=== PATIENT | female | born 1965 | race Caucasian/White ===

== ENCOUNTER → 2017-12-15 07:53 | Outpatient (CLI) | payer OTHER, SELFPAY ==
[2017-12-15 08:48] LABS: Add Manual Diff / Slide Review NO; Basophils Percent Auto 2.1 % (0-2); Eosinophils Percent Auto 3.1 % (2-4); Hematocrit 38.4 % (36-46); Hemoglobin 13.2 g/dL (12.0-16.0); Lymphocytes Percent Auto 18.5 % (25-40); Mean Corpuscular HGB Conc 34.4 % (30-36); Mean Corpuscular Hemoglobin 33.9 PG (26-34); Mean Corpuscular Volume 98.7 fL (80-100); Monocytes Percent Auto 6.8 % (3-14); Neutrophils Absolute Auto 3300 /uL (3000-5900); Neutrophils Percent Auto 69.5 % (50-75); Platelet Count 319 X10^3/uL (150-400); Red Blood Cell Count 3.89 X10^6/uL (4.0-5.2); Red Cell Distribution Width 12.8 % (11.6-14.8); White Blood Cell Count 4.8 X10^3/uL (4.5-11.0)
[2017-12-15 09:03] LABS: Alanine Aminotransferase 28 IU/L (9-52); Albumin 4.3 g/dL (3.5-5.0); Albumin Globulin Ratio 1.4 (1.0-2.8); Alkaline Phosphatase 56 U/L (38-126); Aspartate Aminotransferase 28 IU/L (14-36); BUN Creatinine Ratio 18.6 (6-22); Bilirubin Total 0.7 mg/dL (0.2-1.3); Blood Urea Nitrogen 13 mg/dL (7-17); Calcium 8.9 mg/dL (8.4-10.2); Carbon Dioxide 30 mmol/L (22-32); Chloride 103 mmol/L (98-107); Cholesterol 201 mg/dL (140-199); Estimated Glomerular Filt Rate > 60.0 mL/min (>60); Glucose 84 mg/dL (70-100); HDL Cholesterol 67 mg/dL (40-60); HEMOLYSIS < 15 (0-50); LDL Cholesterol Calculated 102 mg/dL (<100); Sodium 141 mmol/L (137-145); Total Protein 7.3 g/dL (6.3-8.2); Triglycerides 159 mg/dL (35-150)
[2017-12-15 09:42] LABS: TSH w/ Reflex to FT4 2.36 uIU/mL (0.47-4.68)
[2017-12-15 09:57] LABS: HIV 1 and 2 Antibody NEGATIVE (NEGATIVE)
[2017-12-15 10:37] LABS: Urine N gonorrhoeae NOT DETECTED
[2017-12-15 11:03] LABS: Urine Chlamydia NOT DETECTED
[2017-12-19 11:24] LABS: Hepatitis A Antibody IgM NONREACTIVE; Hepatitis Acute Panel Interp 0.01; Hepatitis B Core Antibody IgM NONREACTIVE; Hepatitis B Surface Antigen NONREACTIVE; Hepatitis C Antibody NONREACTIVE
== END ==
PROVIDERS: PCP Family Medicine; Visit Provider Family Medicine
DX: E78.5 Hyperlipidemia, unspecified (principal); Z78.0 Asymptomatic menopausal state; Z11.3 Encounter for screening for infections with a predominantly sexual mode of transmission; Z20.2 Contact with and (suspected) exposure to infections with a predominantly sexual mode of transmission
CPT/HCPCS: 36415; 80053; 80061; 80074; 83001; 83002; 84443; 85025; 86703; 87491; 87591

== ENCOUNTER 2018-01-01 21:24 | Emergency (ER) | payer OTHER, SELFPAY ==
[2018-01-01 21:27] VITALS: BP 148/73; PULSE 80; RESP 16; TEMP 36.8; O2SAT 97; BMI 23.3
--- NOTE | 2018-01-01 22:23 | ED.FALL ---
HPI - Fall General Chief Complaint: Fall Stated Complaint: FALL HIT HEAD RIGHT SIDE Time Seen by Provider: 01/01/18 22:17 Source: patient Mode of arrival: ambulatory Limitations: no limitations History of Present Illness HPI Narrative: The patient was walking her dog about 9:00 p.m. tonight. She stumbled while walking on a sidewalk, falling forward and hitting her head on pavement. She injured her right brow, there has been a little bleeding. She has no visual changes. She has no bleeding from the nose, mouth or ears. She felt dazed after the fall, and took a bit of time to collect herself. There was no LOC. She has no neck pain. She has no extremity weakness. There are no other injuries other than her right forehead. Related Data Previous Rx's Medication Instructions Recorded acyclovir [Zovirax] 1 sulema TP QDAY #5 gm 05/24/17 levothyroxine 25 mcg PO QAM #90 tab 12/20/17 Allergies Allergy/AdvReac Type Severity Reaction Status Date / Time venom-honey bee Allergy Mild Verified 12/01/17 09:36 [bee venom (honey bee)] Review of Systems Review of Systems All systems reviewed & are unremarkable except as noted in HPI and below Constitutional Denies chills, Denies fever(s), Denies lethargy and Denies weakness Eyes Denies change in vision, Denies eye discharge, Denies irritation and Denies loss of vision ENT Ears, Nose, Mouth, and Throat: Denies change in voice, Denies vertigo, Denies dizziness, Denies mouth lesions, Denies neck pain and Denies throat swelling Cardiovascular Denies syncope Musculoskeletal Denies neck pain and Reports other ( No injuries) Integumentary/Breasts Denies rash and Reports wounds ( forehead abrasion) Neurologic Denies confusion, Denies vertigo, Denies dizziness, Denies syncope, Denies loss of vision and Denies weakness Psychiatric Denies confusion Allergic/Immunologic Denies throat swelling Exam Initial Vital Signs Initial Vital Signs: Vital Signs Temperature 98.3 F 01/01/18 21:27 Pulse Rate 80 01/01/18 21:27 Respiratory Rate 16 01/01/18 21:27 Blood Pressure 148/73 H 01/01/18 21:27 Pulse Oximetry 97 01/01/18 21:27 Const General: cooperative, comfortable and well developed Nutritional Appearance: well nourished Orientation: alert, awake, oriented x3 and not confused [facility] Head: normocephalic and other ( abrasion to the right brow.) Ears: external ears normal and TM's normal bilaterally Nose: external nose normal and No nasal discharge Face and sinus: sinuses nontender, face symmetric, no sinus tenderness and No dry mucous membranes Mouth: oral mucosae normal and moist mucous membranes Teeth and gingiva: dentition normal Throat: tonsils normal and uvula midline Eyes General: appearance normal, both eyes and all related structures Eyelids: eyelids normal Conjunctivae: conjunctivae normal Sclera: sclerae normal Pupils: PERRL EOM: EOM intact bilaterally Other: No evidence of hyphema. Neck Neck: normal visual inspection, full ROM and No tender Neuro General: alert, awake, oriented x3, no meningeal signs and other ( Normal Romberg) Cranial Nerves: CN's II-XI intact bilaterally Motor: muscle tone normal throughout [facility] Medical History Chlamydia (Chronic ~2001) Foot pain (Chronic ~1996) Hepatitis (Chronic) Herpes (Chronic) Vision disorder (Chronic) Abnormal Pap smear of cervix (Resolved) Acne (Resolved) Asthma (Resolved) Chicken pox (Resolved ~1967) Measles (Resolved) Mumps (Resolved) Plantar warts (Resolved) Rubella (Resolved) Surgical History Anesthesia (Resolved) Surgical procedure planned (Resolved ~1998) Status post delivery (05/28/98) Family History Father Age: 73 Heart disease Hyperlipidemia Hypertension Colon polyps Son Asthma Social History Smoking Status: Never smoker Course Hospital Course: injuries are fortunate limited to an abrasion to the right brow. The wound was cleansed and dressed prior to discharge. Vital Signs - 8 hr 01/01/18 21:27 Temperature 98.3 F Pulse Rate 80 Respiratory Rate 16 Blood Pressure 148/73 H Pulse Oximetry 97 Discharge Plan Departure Patient Disposition: Home, Self-Care Clinical Impression: Abrasion of forehead Discharge Date/Time: 01/01/18 22:30 Instructions: DI for Abrasion Activity Restrictions/Additional Instructions: Take Tylenol or Advil as needed for pain. Apply ice packs to the forehead for the next 1-2 days may also help with discomfort. Return here for visual changes, Vomiting, dizziness or weakness. Prescriptions: No Action acyclovir [Zovirax] 5 % cream 1 sulema TP QDAY Qty: 5 RF: 0 levothyroxine 25 mcg tablet 25 mcg PO QAM Qty: 90 RF: 3
== END 2018-01-01 22:30 | disposition home or self-care (01) ==
PROVIDERS: Emergency Provider Emergency Medicine; Family Provider Family Medicine; PCP Family Medicine
DX: S00.81XA Abrasion of other part of head, initial encounter (principal); W19.XXXA Unspecified fall, initial encounter
CPT/HCPCS: 99282

== ENCOUNTER 2018-01-04 14:23 | Emergency (ER) | payer OTHER, SELFPAY ==
[2018-01-04 14:26] VITALS: BP 133/80; PULSE 83; RESP 15; TEMP 36.9; O2SAT 99
--- NOTE | 2018-01-04 15:05 | PC.NURSE ---
pt states she is feeling dizzy after her fall on Monday .
--- NOTE | 2018-01-04 15:21 | ED.HEATRA ---
HPI - Head Injury General Chief complaint: Head Injury Stated complaint: DIZZY, POSSIBLE CONCUSSION Time Seen by Provider: 01/04/18 15:21 Source: patient Mode of arrival: ambulatory Limitations: no limitations History of Present Illness HPI Narrative: Patient states that 3 days ago, she was seen in the emergency department after tripping over her dog and falling and hitting her head on the ground. She states she was diagnosed with an abrasion at that time, but has come back because she was told by her primary care physician that she has a concussion. Patient states she had no idea that she had a concussion and she has been feeling dizzy and having a mild headache. She is wondering if this is normal. Patient denies ataxia or excessive drowsiness. She states that her headache has not been worsening and in fact has been improving. No visual changes. No other complaints or injuries. MD Complaint: head injury Onset (ago): day(s) (Three) Mechanism of Injury: fall Place: outdoors Loss of Consciousness: no Location of injury: frontal Severity: moderate Severity scale (1-10): 2 Quality: dull Radiation: none Other Injuries: none Context: other (Patient is not on anticoagulants.) Associated symptoms: other (Patient has had no confusion or amnesia. No nausea or vomiting. No weakness,numbness or tingling.) Related Data Previous Rx's Medication Instructions Recorded acyclovir [Zovirax] 1 sulema TP QDAY #5 gm 05/24/17 levothyroxine 25 mcg tablet 25 mcg PO QAM #90 tab 01/02/18 Allergies Allergy/AdvReac Type Severity Reaction Status Date / Time venom-honey bee Allergy Mild Verified 01/04/18 14:26 [bee venom (honey bee)] Review of Systems Review of Systems All systems reviewed & are unremarkable except as noted in HPI and below Constitutional Denies chills, Denies fever(s), Denies lethargy and Denies weakness Eyes Denies change in vision, Denies eye discharge, Denies irritation and Denies loss of vision ENT Ears, Nose, Mouth, and Throat: Denies change in voice, Reports dizziness, Denies neck pain and Denies sore throat Cardiovascular Denies chest pain, Denies irregular heart rhythm, Denies lightheadedness, Denies palpitations, Denies dyspnea, Denies dyspnea on exertion and Denies orthopnea Respiratory Denies cough, Denies dyspnea, Denies dyspnea on exertion and Denies wheezing Gastrointestinal Gastrointestinal: Denies abdominal pain, Denies change in bowel habits, Denies diarrhea, Denies nausea and Denies vomiting Genitourinary Denies hematuria, Denies flank pain, Denies urinary incontinence and Denies urinary urgency Musculoskeletal Denies neck pain Integumentary/Breasts Denies pruritus, Denies erythema, Denies rash and Denies wounds Neurologic Denies confusion, Reports dizziness, Denies loss of vision and Denies weakness Psychiatric Denies anxiety, Denies confusion, Denies depression, Denies homicidal ideation and Denies suicidal ideation Endocrine Denies palpitations Hematologic/Lymphatic Denies easy bruising Allergic/Immunologic Denies wheezing [facility] Social History marital status: Smoking Status: Never smoker alcohol intake: never substance use type: does not use Exam Initial Vital Signs Initial Vital Signs: Vital Signs Temperature 98.5 F 01/04/18 14:26 Pulse Rate 83 01/04/18 14:26 Respiratory Rate 15 01/04/18 14:26 Blood Pressure 133/80 H 01/04/18 14:26 Pulse Oximetry 99 01/04/18 14:26 Const General: cooperative and well developed Nutritional Appearance: well nourished Orientation: alert, awake, oriented x3 and not confused [facility] Head: normocephalic, atraumatic and periorbital ecchymosis (Patient has a subacute appearing contusion over her right lateral supraorbital area. Extraocular muscles are intact.) Ears: external ears normal and TM's normal bilaterally Nose: external nose normal and No nasal discharge Face and sinus: sinuses nontender, face symmetric, no sinus tenderness and No dry mucous membranes Mouth: oral mucosae normal and moist mucous membranes Teeth and gingiva: dentition normal Throat: tonsils normal and uvula midline Eyes General: appearance normal, both eyes and all related structures Eyelids: eyelids normal Conjunctivae: conjunctivae normal Sclera: sclerae normal Pupils: PERRL EOM: EOM intact bilaterally Neck Neck: normal visual inspection, trachea midline, No lymphadenopathy, No midline deformity and No JVD Lymphatic: No lymphedema Chest Chest: normal inspection of the chest Resp Effort & Inspection: normal respiratory effort, able to speak in complete sentences, no respiratory distress and no use of accessory muscles Auscultation: clear to auscultation bilaterally, no rales, no rhonchi and no wheezes Cardio Rate: regular rate Rhythm: regular rhythm Heart Sounds: no click, no gallops, no murmurs and no rubs Pulses: normal peripheral pulses GI Inspection: non-distended Palpation: soft, no hepatosplenomegaly, No guarding, No pulsatile mass and No tender Auscultation: normal bowel sounds Back/Spine/Pelvis Back: No CVA tenderness Cervical Spine: cervical ROM normal and No pain with cervical ROM Thoracic/Lumbar Spine: thoracic and lumbar spine normal to inspection Skin General: no rashes or lesions noted, No jaundice and No petechiae Neuro General: alert, oriented x3, gait normal and no focal motor deficits Speech: speech normal Extrem General: full ROM, no clubbing, cyanosis or edema, no pedal edema and no calf tenderness Psych Appearance: well kempt Mental Status: mental status grossly normal Attitude: cooperative Thought Content: normal and suicidality Judgment: judgment good Course Hospital Course: Patient was well appearing in the emergency department. I did not feel that her symptoms indicated an undiagnosed intracranial hemorrhage. I did discuss at length with the patient the symptoms of concussion, as well as the time frame during which they should be expected. Patient expressed understanding. I did not feel any diagnostic imaging was indicated in the emergency department at this time. Patient is deemed stable for discharge home. Vital Signs - 8 hr 01/04/18 14:26 01/04/18 15:41 Temperature 98.5 F Pulse Rate 83 88 Respiratory Rate 15 12 Blood Pressure 133/80 H Blood Pressure [Right Arm] 134/88 H Pulse Oximetry 99 99 MDM - Head Injury Differential Diagnosis Differential diagnosis: Likely concussion without loss of consciousness, closed head injury and postconcussion syndrome Medical Records Attestation: I reviewed the patient's medical records. Discharge Plan Departure Patient Disposition: Home, Self-Care Clinical Impression: Closed head injury, Concussion without loss of consciousness Discharge Date/Time: 01/04/18 15:50 Interventions: ED Discharge Assessment Last Done: 01/04/18 15:50 Instructions: DI for Concussion Prescriptions: No Action acyclovir [Zovirax] 5 % cream 1 sulema TP QDAY Qty: 5 RF: 0 levothyroxine 25 mcg tablet 25 mcg PO QAM Qty: 90 RF: 3 Referrals: Vipul Akhtar MD [Primary Care Provider] - (Please follow up, as needed.)
[2018-01-04 15:41] VITALS: BP 134/88; PULSE 88; RESP 12; O2SAT 99
== END 2018-01-04 15:50 | disposition home or self-care (01) ==
PROVIDERS: Emergency Provider Emergency Medicine; Family Provider Family Medicine; PCP Family Medicine
DX: S09.90XA Unspecified injury of head, initial encounter (principal); R42 Dizziness and giddiness; W19.XXXA Unspecified fall, initial encounter
CPT/HCPCS: 99282

== ENCOUNTER → 2018-06-09 08:56 | Outpatient (CLI) | payer OTHER, SELFPAY ==
--- NOTE | 2018-06-09 09:00 | DI.RAD.S_ITS ---
PROCEDURE: XR FOOT LT MIN 3V INDICATIONS: Left foot pain TECHNIQUE: 3 views of the foot were acquired. COMPARISON: None. FINDINGS: Bones: No fractures or dislocations. No suspicious bony lesions. Soft tissues: No tibiotalar joint effusion. Achilles tendon appears normal. IMPRESSION: No fracture. No osseous lesion. If symptoms and/or clinical suspicion for pathology persists, further assessment with repeat radiographs (7-10 days) or advanced imaging (e.g. CT, MRI or bone scan) may be helpful. Dictated by: Shannon Cagle MD, PhD on 06/09/2018 at 9:27 Approved by: Shannon Cagle MD, PhD on 06/09/2018 at 9:28
== END ==
PROVIDERS: Family Provider Family Medicine; PCP Family Medicine; Visit Provider Physician Assistant
DX: M79.672 Pain in left foot (principal)
CPT/HCPCS: 73630

== ENCOUNTER → 2019-11-12 07:37 | Outpatient (CLI) | payer OTHER, SELFPAY ==
[2019-11-12 08:22] LABS: Add Manual Diff / Slide Review NO; Basophils Absolute Auto 100 /uL (0-100); Basophils Percent Auto 3.2 % (0-2); Eosinophils Absolute Auto 100 /uL (0-450); Eosinophils Percent Auto 2.3 % (2-4); Hematocrit 38.7 % (36-46); Hemoglobin 13.7 g/dL (12.0-16.0); Lymphocytes Absolute Auto 1300 /uL (1100-4500); Lymphocytes Percent Auto 34.3 % (25-40); Mean Corpuscular HGB Conc 35.4 % (30-36); Mean Corpuscular Hemoglobin 34.7 PG (26-34); Mean Corpuscular Volume 97.8 fL (80-100); Monocytes Absolute Auto 400 /uL (0-900); Neutrophils Absolute Auto 1900 /uL (1500-7000); Neutrophils Percent Auto 49.2 % (50-75); Platelet Count 288 X10^3/uL (150-400); Red Blood Cell Count 3.96 X10^6/uL (4.0-5.2); Red Cell Distribution Width 12.9 % (11.6-14.8); White Blood Cell Count 3.9 X10^3/uL (4.5-11.0)
[2019-11-12 08:55] LABS: Alanine Aminotransferase 21 IU/L (<35); Albumin 4.2 g/dL (3.5-5.0); Albumin Globulin Ratio 1.4 (1.0-2.8); Alkaline Phosphatase 71 U/L (38-126); Aspartate Aminotransferase 35 IU/L (14-36); BUN Creatinine Ratio 19.7 (6-22); Bilirubin Total 0.9 mg/dL (0.2-1.3); Blood Urea Nitrogen 13 mg/dL (7-17); Calcium 9.1 mg/dL (8.4-10.2); Carbon Dioxide 28 mmol/L (22-32); Chloride 103 mmol/L (98-107); Cholesterol 224 mg/dL (140-199); Estimated Glomerular Filt Rate > 60.0 mL/min (>60); Globulin 3.1 g/dL (1.7-4.1); Glucose 96 mg/dL (70-100); HDL Cholesterol 50 mg/dL (40-60); HEMOLYSIS < 15 (0-50); LDL Cholesterol Calculated 152 mg/dL (<100); Potassium 4.4 mmol/L (3.4-5.1); Sodium 138 mmol/L (137-145); Total Protein 7.3 g/dL (6.3-8.2); Triglycerides 108 mg/dL (35-150)
[2019-11-12 09:24] LABS: TSH w/ Reflex to FT4 4.14 uIU/mL (0.47-4.68)
== END ==
PROVIDERS: Family Provider Family Medicine; PCP Family Medicine; Referring Provider Family Medicine; Visit Provider Family Medicine
DX: E06.3 Autoimmune thyroiditis (principal); E78.5 Hyperlipidemia, unspecified; E66.9 Obesity, unspecified; Z68.30 Body mass index [BMI] 30.0-30.9, adult
CPT/HCPCS: 36415; 80053; 80061; 84443; 85025

== ENCOUNTER → 2020-01-21 15:52 | Outpatient (CLI) | payer OTHER, SELFPAY ==
--- NOTE | 2020-01-21 | DI.MG.S_ITS ---
BILATERAL DIGITAL SCREENING MAMMOGRAM 3D/2D WITH CAD: 01/21/2020 CLINICAL: Routine screening. Comparison is made to exams dated: 01/16/2017 mammogram, 07/09/2014 mammogram - [facility], and 07/02/2009 mammogram - [facility]. The tissue of both breasts is heterogeneously dense. This may lower the sensitivity of mammography. Current study was also evaluated with a Computer Aided Detection (CAD) system. There are new linear fine calcifications in the left breast anterior depth inferior region seen on the mediolateral oblique view only. No other significant masses, calcifications, or other findings are seen in either breast. IMPRESSION: INCOMPLETE: NEEDS ADDITIONAL IMAGING EVALUATION The new linear fine calcifications in the left breast resemble vascular calcifications but are indeterminate. Mediolateral and spot magnification views are recommended for further characterization. This exam was interpreted at Station ID: [id number]. NOTE: For mammograms, a report in lay terms will be sent to the patient. Approximately 15% of breast malignancies will not be visualized mammographically. In the management of a palpable breast mass, a negative mammogram must not discourage biopsy of a clinically suspicious lesion. Electronically Signed By: Franky Santos M.D. aty/:01/21/2020 16:36:09 letter sent: Additional Imaging Needed ACR BI-RADS Category 0: Incomplete 3340F
== END ==
PROVIDERS: Family Provider Family Medicine; PCP Family Medicine; Referring Provider Family Medicine; Visit Provider Family Medicine
DX: Z12.31 Encounter for screening mammogram for malignant neoplasm of breast (principal)
CPT/HCPCS: 77063; 77067

== ENCOUNTER → 2023-08-30 14:37 | Outpatient (CLI) | payer OTHER, SELFPAY ==
--- NOTE | 2023-08-30 14:38 | DI.MG.S_ITS ---
BILATERAL DIGITAL SCREENING MAMMOGRAM 3D/2D WITH CAD: 08/30/2023 CLINICAL: Routine screening. Comparison is made to exams dated: 01/16/2017 mammogram, 01/21/2020 mammogram, and 07/09/2014 mammogram - [facility]. Both breasts are heterogeneously dense, which may obscure small masses (category c / 51-75% glandular tissue). Current study was also evaluated with a Computer Aided Detection (CAD) system. No significant masses, calcifications, or other findings are seen in either breast. There has been no significant interval change. IMPRESSION: NEGATIVE There is no mammographic evidence of malignancy. A 1 year screening mammogram is recommended. Based on the Tyrer Cuzick model (a risk assessment model) the patient's lifetime risk is 13.6% and her 10 year risk is 5.6%. According to the ACR, ACS, and NCCN guidelines, an annual breast MRI exam along with mammogram is recommended if the patient's lifetime risk is 20% or greater. This exam was interpreted at Station ID: [id number]. NOTE: For mammograms, a report in lay terms will be sent to the patient. Approximately 15% of breast malignancies will not be visualized mammographically. In the management of a palpable breast mass, a negative mammogram must not discourage biopsy of a clinically suspicious lesion. Electronically Signed By: Karen gallego/patty:09/01/2023 15:28:11 letter sent: Normal Exam ACR BI-RADS Category 1: Negative [id number]
== END ==
PROVIDERS: Family Provider Family Medicine; PCP Family Medicine; Referring Provider Family Medicine; Visit Provider Family Medicine
DX: Z12.31 Encounter for screening mammogram for malignant neoplasm of breast (principal); R92.333 Mammographic heterogeneous density, bilateral breasts
CPT/HCPCS: 77063; 77067

== ENCOUNTER 2024-01-02 09:11 | Day surgery (SDC) | payer OTHER, SELFPAY ==
[2024-01-02 09:37] VITALS: BP 134/78; PULSE 68; RESP 17; TEMP 37.1; O2SAT 99
[2024-01-02] MEDS: LACTATED RINGERS 1,000 ML 42 ML IV (09:42)
--- NOTE | 2024-01-02 10:06 | P.HP_ITS ---
History of Present Illness History of Present Illness Date Patient Seen: 01/02/24 Time Patient Seen: 10:06 Chief complaint: SDC Narrative: 58-year-old woman here for screening colonoscopy. Last colonoscopy 10 years ago. Grandmother and grandfather had colon cancer but not within first-degree relatives. No abdominal concerns today. [facility] Medical History Vision disorder Plantar warts Acne Asthma Foot pain (~1996) Chlamydia (~2001) Rubella Mumps Measles Hepatitis Chicken pox (~1967) Herpes Abnormal Pap smear of cervix Surgical History Anesthesia Surgical procedure planned (~1998) Status post delivery (05/28/98) Family History Father Age: 79 Heart disease Hyperlipidemia Hypertension Colon polyps Son Asthma Social History marital status: Smoking Status: Never smoker alcohol intake: never substance use type: does not use Meds Home Medications and Allergies Home Medications Medication Instructions Recorded Confirmed Type fluticasone propionate 50 2 spray intranasal DAILY 06/09/18 01/02/24 History mcg/actuation nasal spray,suspension multivitamin 1 tab PO DAILY 05/27/20 01/02/24 History fexofenadine 180 mg tablet 180 mg PO PRN PRN Allergic Symptoms 11/22/22 01/02/24 History (Negra Allergy) Allergies Allergy/AdvReac Type Severity Reaction Status Date / Time venom-honey bee Allergy Mild Verified 11/14/23 18:41 [bee venom (honey bee)] morphine Allergy ITCHING Verified 01/02/24 09:29 Exam Vital Signs (past 8 hours): - 01/02/24 09:37 Temperature 98.7 F Pulse Rate 68 Respiratory Rate 17 Blood Pressure 134/78 Pulse Oximetry 99 Oxygen Delivery Method Room Air Oxygen Delivery Method Room Air Narrative Exam Narrative: General adult woman alert oriented no acute distress Chest nonlabored respiration Extremities warm well perfused Assessment & Plan Assessment & Plan narrative: The patient requires colorectal screening and colonoscopy is recommended. Technical details were discussed. Risks, benefits, alternatives explained. Risks including but not limited to myocardial infarction, aspiration, bleeding, pain, missed lesion, incomplete examination, need for further radiographic studies, intestinal injury, and need for major abdominal surgery were discussed. All questions were answered to their satisfaction, and they are in agreement with this plan. Time-Based Coding :: [TOTAL MINUTES] spent with patient and on the chart (including review of chart, obtaining history, exam, reviewing outside data, placing orders, documenting exam and treatment plan, and counseling patient) on [DATE].
[2024-01-02 10:33] VITALS: BP 119/76; PULSE 97; RESP 20; TEMP 36.3; O2SAT 97
--- NOTE | 2024-01-02 10:37 | P.OP.COLON_ITS ---
Operative Date/Time/Diagnoses Date of procedure: 01/02/24 Time of procedure: 10:38 Pre-op diagnosis: Colorectal screening Procedure & Clinicians Study performed: Screening colonoscopy Same procedure as scheduled: Yes Indications: Colorectal screening Surgeon: Nicolás De Jesus Procedure Notes Procedure in detail: The history and physical was performed/updated and the patient is ASA class is 2. The procedure was discussed in detail with the patient. Potential risks co mplications including infection, bleeding, missed diagnosis, perforation, need for surgery, and were explained. Their questions were answered and informed consent was obtained. Patient was brought to the procedure room and placed standard monitoring equipment. The patient's vital signs were monitored continuously throughout the entire procedure. Prior to starting time-out was performed. The patient was placed in the left lateral recumbent position. Procedural sedation was administered by anesthesia. Examination began with a thorough inspection of the perianal area there was no evidence of fissures, fistulae, external hemorrhoids or cutaneous malignancy. The colonoscopy scope was then placed into the anal canal and was advanced to the cecum, which was identified by the ileocecal valve, the appendiceal orifice and the confluence of the taenia. The scope was then slowly withdrawn examining colon thoroughly in all directions, irrigating it of any residual stool. The scope was retroflexed within the rectum The patient tolerated the procedure well. They will be discharged once criteria are met. The prep was of good/excellent quality. The withdrawl time was 7 minutes. FINDINGS * Unremarkable colonoscopy. Normal healthy colonic mucosa without mass or polyps. Specimen(s): none sent Impression: Normal colonoscopy Post-procedure Recommendations: Colonoscopy in 10 years Disposition: same day surgery
[2024-01-02 10:38] VITALS: BP 125/71; PULSE 66; RESP 21; O2SAT 97
[2024-01-02 10:44] VITALS: BP 146/92; PULSE 68; RESP 19; O2SAT 98
[2024-01-02 10:45] VITALS: BP 140/86; PULSE 73; RESP 14; TEMP 36.5; O2SAT 98
[2024-01-02 11:11] VITALS: BP 142/84; PULSE 54; RESP 16; TEMP 36.7; O2SAT 99
== END 2024-01-02 11:19 | disposition home or self-care (01) ==
PROVIDERS: Family Provider Family Medicine; PCP Family Medicine; Referring Provider Surgery; Visit Provider Surgery
PROC: 0DJD8ZZ Inspection of Lower Intestinal Tract, Via Natural or Artificial Opening Endoscopic (ICD-10-PCS; CPT 45378; principal; 2024-01-02 10:15)
DX: Z12.11 Encounter for screening for malignant neoplasm of colon (principal)
CPT/HCPCS: 45378; J2704

== ENCOUNTER → 2024-08-08 18:08 | Outpatient (CLI) | payer OTHER, SELFPAY | PROVIDERS: Family Provider Family Medicine; PCP Family Medicine; Visit Provider Student in an Organized Health Care Education/Training Program | DX: R10.9 Unspecified abdominal pain (principal) | CPT/HCPCS: 87086 ==

== ENCOUNTER 2024-08-08 18:40 | Observation (INO) | payer OTHER, SELFPAY ==
[2024-08-08 18:50] VITALS: BP 125/68; PULSE 84; RESP 15; TEMP 37.1; O2SAT 100; BMI 27.4
[2024-08-08 19:16] LABS: Add Manual Diff / Slide Review NO; Basophils Absolute Auto 0 /uL (0-100); Basophils Percent Auto 0.4 % (0-2); Eosinophils Absolute Auto 100 /uL (0-450); Eosinophils Percent Auto 0.7 % (2-4); Hematocrit 37.9 % (36-46); Hemoglobin 12.8 g/dL (12.0-16.0); Lymphocytes Absolute Auto 1300 /uL (1100-4500); Lymphocytes Percent Auto 12.5 % (25-40); Mean Corpuscular HGB Conc 33.8 % (30-36); Mean Corpuscular Hemoglobin 33.5 PG (26-34); Mean Corpuscular Volume 99.1 fL (80-100); Monocytes Absolute Auto 800 /uL (0-900); Monocytes Percent Auto 8.1 % (3-14); Neutrophils Absolute Auto 8200 /uL (1500-7000); Neutrophils Percent Auto 78.3 % (50-75); Platelet Count 286 X10^3/uL (150-400); Red Blood Cell Count 3.82 X10^6/uL (4.0-5.2); Red Cell Distribution Width 12.8 % (11.6-14.8); White Blood Cell Count 10.4 X10^3/uL (4.5-11.0)
[2024-08-08 19:28] LABS: Alanine Aminotransferase 129 IU/L (<35); Albumin 4.3 g/dL (3.5-5.0); Albumin Globulin Ratio 1.1 (1.0-2.8); Alkaline Phosphatase 109 U/L (38-126); Aspartate Aminotransferase 125 IU/L (14-36); BUN Creatinine Ratio 17.4 (6-22); Bilirubin Total 1.4 mg/dL (0.2-1.3); Blood Urea Nitrogen 15 mg/dL (7-17); Calcium 9.2 mg/dL (8.4-10.2); Carbon Dioxide 25 mmol/L (22-32); Chloride 99 mmol/L (98-107); Estimated Glomerular Filt Rate > 60 mL/min (>60); Globulin 3.8 g/dL (1.7-4.1); Glucose 105 mg/dL (80-110); HEMOLYSIS < 15 (0-50); Lipase 41 U/L (23-300); Potassium 3.5 mmol/L (3.4-5.1); Sodium 133 mmol/L (137-145); Total Protein 8.1 g/dL (6.3-8.2)
--- NOTE | 2024-08-08 20:14 | ED.ABDPAIN ---
HPI - Abdominal Pain General Chief Complaint: Abdominal Pain Stated Complaint: sent by [facility], r/o appendicitis Time Seen by Provider: 08/08/24 20:14 Source: patient Mode of arrival: Family Vehicle History of Present Illness HPI narrative: 59-year-old female with past medical history of hyperlipidemia Presents from the walk-in clinic for evaluation of abdominal pain, she states that her pain has been ongoing persistent for the past 3 days. She states that she has also been having intermittent fevers to been taking Tylenol for this every 6 hours. Does admit to some nausea but no vomiting has had a history of denies any other symptoms at this time. She states that she had a urinalysis performed at the walk-in clinic prior to arrival and was normal but was sent here to rule out appendicitis. Review of records does show that patient had urinalysis performed today 08/08/2024 prior to arrival Related Data Home Medications Medication Instructions Recorded Confirmed fluticasone propionate 50 2 spray intranasal DAILY 06/09/18 08/08/24 mcg/actuation nasal spray,suspension multivitamin 1 tab PO DAILY 05/27/20 08/08/24 fexofenadine 180 mg tablet 180 mg PO PRN PRN Allergic Symptoms 11/22/22 08/08/24 (Negra Allergy) Allergies Allergy/AdvReac Type Severity Reaction Status Date / Time venom-honey bee Allergy Mild Verified 08/08/24 18:55 [bee venom (honey bee)] morphine Allergy ITCHING Verified 08/08/24 18:55 Review of Systems Review of Systems Narrative: General: Denies fever, chills, weight loss HEENT: Denies headache, eye drainage, eye irritation, head trauma, sore throat, voice change Cardiovascular: Denies any chest pain, palpitations, tachycardia Respiratory: Denies any shortness of breath, cough, wheeze, stridor GI/: positive abdominal pain, nausea, denies vomiting, diarrhea, bright red blood per rectum, melanotic stools, urinary frequency, urinary retention, dysuria, hematuria MSK: Denies any joint pain, muscle pains, swelling Skin: Denies any rashes, lesions, discoloration Neuro: Denies any headache, lightheadedness, dizziness, fainting, weakness Psych: Denies SI/HI Patient History Medical History (Updated 08/08/24 @ 21:36 by Girish Leslie DO) Vision disorder Plantar warts Acne Asthma Foot pain (~1996) Chlamydia (~2001) Rubella Mumps Measles Hepatitis Chicken pox (~1967) Herpes Abnormal Pap smear of cervix Surgical History Anesthesia Surgical procedure planned (~1998) Status post delivery (05/28/98) Family History Father Age: 79 Heart disease Hyperlipidemia Hypertension Colon polyps Son Asthma Social History marital status: Smoking Status: Never smoker alcohol intake: never substance use type: does not use Smoking Status: Never smoker alcohol intake frequency: 0-2 drinks per day Exam Narrative Exam Narrative: General: Cooperative, comfortable, well-developed, not in acute distress HEENT: Normocephalic, atraumatic, PERRLA, normal sclera, eyelids normal, Neck: Active full range of motion, atraumatic Chest: Normal to inspection, negative crepitus, no overlying erythema ecchymosis Respiratory: Normal respiratory effort, not in acute respiratory distress, clear to auscultation bilaterally negative cough, wheeze, tachypnea, rhonchi, rales Cardiology: Regular rate rhythm negative gallop, murmur, rubs GI/: Normal to inspection, soft, nonrigid, mild tenderness to palpation lower abdomen, exam deferred MSK: Full range of active range of motion of all 4 extremities, atraumatic Skin: No rashes lesions noted Neuro: Alert awake oriented x3, moves all 4 extremities spontaneously, cranial nerves intact, able to answer all questions appropriately follows commands appropriately Psych: Cooperative, negative suicidal or homicidal ideations Initial Vital Signs Initial Vital Signs: Vital Signs Temperature 98.8 F 08/08/24 18:50 Pulse Rate 84 08/08/24 18:50 Respiratory Rate 15 08/08/24 18:50 Blood Pressure 125/68 08/08/24 18:50 Pulse Oximetry 100 08/08/24 18:50 Oxygen Delivery Method Room Air 08/08/24 18:50 Course Orders Ordered: ED Orders 08/08/24 18:50 EKG-12 Lead Stat 08/08/24 19:05 Complete Blood Count AUTO DIFF Stat Comprehensive Metabolic Panel Stat Lipase Stat 08/08/24 20:15 CT abdomen pelvis w con Stat Ondansetron HCl (Ondansetron 4 Mg/2 Ml Inj) 4 mg IV NOW PRN PRN Reason: Nausea And Vomiting Ondansetron HCl (Ondansetron 4 Mg Odt) 4 mg PO NOW PRN PRN Reason: Nausea And Vomiting Discontinued Medications Sodium Chloride (Normal Saline 0.9%) 1,000 mls @ 1,000 mls/hr IV BOLUS ONE Stop: 08/08/24 21:13 Ketorolac Tromethamine (Ketorolac 30 Mg/Ml Vial) 15 mg IV NOW ONE Stop: 08/08/24 20:15 Last Admin: 08/08/24 20:39 Dose: 15 mg Documented By: ANA M Ondansetron HCl (Ondansetron 4 Mg/2 Ml Inj) 4 mg IV NOW ONE Stop: 08/08/24 20:15 Last Admin: 08/08/24 20:38 Dose: 4 mg Documented By: ANA M Vital Signs Vital signs: Vital Signs - 8 hr 08/08/24 18:50 Temperature 98.8 F Pulse Rate 84 Respiratory Rate 15 Blood Pressure 125/68 Pulse Oximetry 100 Oxygen Delivery Method Room Air MDM - Abdominal Pain Differential Diagnosis Differential diagnosis: Likely abdominal pain, acute appendicitis, constipation, diverticulitis, small bowel obstruction and other ( electrolyte abnormality, urinary tract infection) Lab Data 08/08/24 19:05 08/08/24 19:05 Labs: Lab Results 08/08/24 Range/Units 19:05 WBC 10.4 (4.5-11.0) X10^3/uL RBC 3.82 L (4.0-5.2) X10^6/uL Hgb 12.8 (12.0-16.0) g/dL Hct 37.9 (36-46) % MCV 99.1 (80-100) fL MCH 33.5 (26-34) PG MCHC 33.8 (30-36) % RDW 12.8 (11.6-14.8) % Plt Count 286 (150-400) X10^3/uL Neut % (Auto) 78.3 H (50-75) % Lymph % (Auto) 12.5 L (25-40) % [place] % (Auto) 8.1 (3-14) % Eos % (Auto) 0.7 L (2-4) % Baso % (Auto) 0.4 (0-2) % Neut # (Auto) 8200 H (9253-6733) /uL Lymph # (Auto) 1300 (1773-6903) /uL [place] # (Auto) 800 (0-900) /uL Eos # (Auto) 100 (0-450) /uL Baso # (Auto) 0 (0-100) /uL Sodium 133 L (137-145) mmol/L Potassium 3.5 (3.4-5.1) mmol/L Chloride 99 (98-107) mmol/L Carbon Dioxide 25 (22-32) mmol/L BUN 15 (7-17) mg/dL Creatinine 0.86 (0.52-1.04) mg/dL Estimated GFR > 60 (>60) mL/min BUN/Creatinine Ratio 17.4 (6-22) Glucose 105 (80-110) mg/dL Calcium 9.2 (8.4-10.2) mg/dL Total Bilirubin 1.4 H (0.2-1.3) mg/dL AST 125 H (14-36) IU/L ALT 129 H (<35) IU/L Alkaline Phosphatase 109 (38-126) U/L Total Protein 8.1 (6.3-8.2) g/dL Albumin 4.3 (3.5-5.0) g/dL Globulin 3.8 (1.7-4.1) g/dL Albumin/Globulin Ratio 1.1 (1.0-2.8) Lipase 41 (23-300) U/L Imaging Data CT scan - abdomen/pelvis: Radiologist's Impression: [place] [address] CT Scan Report Signed Patient: Cee Garces MR#: [id number] : 1965 Acct:[id number] Age/Sex: 59 / F Date of Service: 08/08/24 Loc: ED Accession Number: [id number] Procedure: CT abdomen pelvis w con Ordering Provider: Girish Leslie D.O. PROCEDURE: CT ABDOMEN PELVIS W CON INDICATIONS: Lower abd pain TECHNIQUE: After the administration of intravenous contrast, axial sections acquired from the lung bases to the pubic symphysis. Coronal and sagittal reformats were performed. For radiation dose reduction, the following was used: automated exposure control, adjustment of mA and/or kV according to patient size. COMPARISON: None. FINDINGS: Image quality: Diagnostic Lower chest: Diagnostic Liver: Unremarkable Gallbladder and biliary system: Unremarkable, nondilated Pancreas: No ductal dilation Spleen: Nonenlarged Adrenals: No discrete nodules Kidneys: No solid mass. No hydronephrosis. Vessels and lymph nodes: Main portal vein is patent. No abdominal aortic aneurysm. No pathologic lymph nodes by size criteria. Bowel and peritoneum: No small bowel obstruction. Small amount pelvic free fluid is present, with small amount of hyperdensity. No drainable ascites. Moderate inflammatory changes are present in the right lower quadrant. Dilated inflamed appendix with a stone at the neck is present. There is thickening of the adjacent peritoneal lining Body wall: Unremarkable Pelvis: Bladder is unremarkable. Reproductive organs are unremarkable on limited CT evaluation Bones: There are degenerative changes. No aggressive appearing osseous abnormality IMPRESSION: Acute appendicitis with a stone at the neck. Small complicated free fluid is seen in the pelvis. Perforated appendicitis is possible. No drainable fluid collection at this time. Other findings above. MDM Narrative Medical decision making narrative: 59-year-old female history of hyperlipidemia presents from walk-in clinic for 3 days of abdominal pain. States it started spontaneously 3 days ago has been stating intermittent fevers which she has been taking Tylenol for this. Review of records show patient had urinalysis performed prior to arrival at walk-in clinic which was not consistent with acute urinary tract infection. Patient had lab work performed which did not show a leukocytosis no abnormalities with her electrolytes. CT scan showing acute appendicitis with a stone at the neck, free fluid seen in the pelvis, perforated appendicitis possible no drainable fluid. IV zosyn ordered. Patient physical exam with TTP of abd but not peritoneal in nature. patient not meeting any other sirs or sepsis criteria 2126: did discuss was with Dr. Slater, agrees with current workup personally reviewed the images he agrees that given patient not meeting any other sepsis sirs criteria hemodynamically stable patient safe at this point to have appendectomy tomorrow morning, patient was updated in regards to this and agrees with admission The patient's management plan was discussed Dr. Slater, who agrees to admit the patient to their service and assumes care of this patient at this time. Full admission orders will be placed by the primary team. Discharge Plan Departure Patient Disposition: Admitted as Observation Clinical Impression: Acute appendicitis
[2024-08-08] MEDS: ONDANSETRON 4 MG/2 ML INJ IV (20:38)
[2024-08-08] MEDS: KETOROLAC 30 MG/ML VIAL 15 MG IV (20:39)
[2024-08-08 20:51] VITALS: BP 142/70
[2024-08-08] MEDS: PIPERACILLIN/TAZO 4.5 GM in SODIUM CHLORIDE 0.9% 100 ML IV (21:33)
[2024-08-08] MEDS: SODIUM CHLORIDE 0.9% 1,000 ML 1000 ML IV (21:34)
[2024-08-08 21:44] VITALS: BP 115/56
[2024-08-08 22:00] VITALS: BP 114/56; PULSE 86; RESP 14; O2SAT 100
[2024-08-08 22:10] VITALS: BMI 27.4
[2024-08-08 22:19] VITALS: O2SAT 99
[2024-08-08 22:28] VITALS: BP 123/68; PULSE 75; RESP 16; TEMP 37; O2SAT 95
[2024-08-08] MEDS: HEPARIN 5,000 UNIT/ML VIAL 5000 UNIT SUBCUT (23:36)
[2024-08-08] MEDS: ACETAMINOPHEN 325 MG TABLET 650 MG PO (23:37)
[2024-08-08] MEDS: LACTATED RINGERS 1,000 ML 100 ML IV (23:38)
[2024-08-08] MEDS: OXYCODONE IR 10 MG TABLET PO (23:44)
[2024-08-09] VITALS (15 sets, daily range): BP systolic 96–126; BP diastolic 49–70; PULSE 60–90; RESP 13–21; TEMP 36.3–37.2; O2SAT 96–100; BMI 27.4
--- NOTE | 2024-08-09 | PATH_ITS ---
[facility] Accession Number: [id number] No. of containers..01 Tissue . 01 Material submitted: . appendix - APPENDIX . 01 Diagnosis: APPENDIX, APPENDECTOMY: Acute suppurative and necrotizing appendicitis with reactive changes. Benign, largely infarcted, nodular tissue also present; please see comment. Negative for dysplasia or malignancy. [facility] 08/14/2024 1152 Local . 01 Comment: In addition to the acute suppurative inflammation of the appendix, there is a separate nodular fragment largely infarcted, associated with simple cyst lined by unremarkable mesothelium. Due to extreme infarction futher characterization is limited. Atypical or malignant cells are not identified. Clinical correlation is recommended. . 01 Electronically signed: . Simeon Navas MD, Pathologist NPI- [id number] . 01 Gross description: . Received in formalin with two identifiers and appendix, is a benson vermiform presumed appendix 6.2 cm in length and ranging from 0.5 to 0.8 cm in diameter. The serosa is umana and roughened. The margin is inked blue. The lumen is dilated and filled with brown thick fluid averaging 0.6 cm in diameter. The dunn average less than 0.1 cm thick with no perforation or lesions identified. . Also within the container are two soft tissue fragments. The first is a fragment of yellow adipose 3.2 x 2.1 x 1.2 cm with a yellow, soft, unremarkable cut surface. The third fragment is an irregular fragment of benson translucent membranous material consistent with disrupted cyst measuring 6.5 x 1.5 x 0.2 cm. A pedunculated benson rubbery nodule is attached measuring 1.0 x 0.9 x 0.7 cm and is inked blue. The remaining cyst wall averages less than 0.1 cm thick with no thickening or excrescences identified. . Pellet Preparation Operator sections are submitted as follows: A1: Appendix to include entire bisected distal tip margin and cross-sections. A2: Cyst nodule with attached portions of cyst wall. ([id number]) /ISMAEL 08/14/2024 1443 Local . 01 Pathologist provided ICD-10: K35.80 . 01 CPT . 198711 Specimen Comment: A courtesy copy of this report has been sent to [facility] Performed at: [address] [address], [place], [place] [id number] MD Aldo Preciado MD Phone: [phone]
[2024-08-09] MEDS: PIPERACILLIN/TAZO 3.375 GM in SODIUM CHLORIDE 0.9% 100 ML IV ×2 (02:15→10:04)
[2024-08-09] MEDS: ACETAMINOPHEN 325 MG TABLET 650 MG PO ×3 (04:00→15:10)
[2024-08-09] MEDS: IBUPROFEN 400 MG TABLET PO ×3 (05:16→15:05)
[2024-08-09 06:46] LABS: Add Manual Diff / Slide Review NO; Basophils Absolute Auto 100 /uL (0-100); Eosinophils Absolute Auto 200 /uL (0-450); Eosinophils Percent Auto 2.3 % (2-4); Hematocrit 32.8 % (36-46); Hemoglobin 11.4 g/dL (12.0-16.0); Lymphocytes Absolute Auto 1600 /uL (1100-4500); Lymphocytes Percent Auto 22.9 % (25-40); Mean Corpuscular HGB Conc 34.7 % (30-36); Mean Corpuscular Hemoglobin 34.1 PG (26-34); Mean Corpuscular Volume 98.3 fL (80-100); Monocytes Absolute Auto 600 /uL (0-900); Monocytes Percent Auto 9.3 % (3-14); Neutrophils Absolute Auto 4400 /uL (1500-7000); Neutrophils Percent Auto 64.5 % (50-75); Platelet Count 248 X10^3/uL (150-400); Red Blood Cell Count 3.34 X10^6/uL (4.0-5.2); Red Cell Distribution Width 12.7 % (11.6-14.8); White Blood Cell Count 6.8 X10^3/uL (4.5-11.0)
[2024-08-09] MEDS: MULTIVITAMIN 1 TABLET 1 TAB PO (09:59)
[2024-08-09] MEDS: HEPARIN 5,000 UNIT/ML VIAL 5000 UNIT SUBCUT (10:00)
[2024-08-09] MEDS: OXYCODONE IR 5 MG TABLET PO ×3 (10:05→15:06)
--- NOTE | 2024-08-09 11:31 | PM.HP.IH.1 ---
History of Present Illness History of Present Illness Date Patient Seen: 08/09/24 Time Patient Seen: 11:32 Chief complaint: sent by [facility], r/o appendicitis Narrative: 59-year-old white female with 3 days of right lower quadrant pain symptoms had a CT scan which showed a fecalith and some fluid around the appendix consistent with appendicitis. Normal white count no tachycardia no peritonitis. [facility] Medical History (Updated 08/09/24 @ 11:33 by Tobias Slater MD) Vision disorder Plantar warts Acne Asthma Foot pain (~1996) Chlamydia (~2001) Rubella Mumps Measles Hepatitis Chicken pox (~1967) Herpes Abnormal Pap smear of cervix Surgical History Anesthesia Surgical procedure planned (~1998) Status post delivery (05/28/98) Family History Father Age: 79 Heart disease Hyperlipidemia Hypertension Colon polyps Son Asthma Social History marital status: household members: none Smoking Status: Never smoker alcohol intake: never substance use type: does not use Meds Home Medications and Allergies Home Medications Medication Instructions Recorded Confirmed Type fluticasone propionate 50 2 spray intranasal DAILY 06/09/18 08/08/24 History mcg/actuation nasal spray,suspension multivitamin 1 tab PO DAILY 05/27/20 08/08/24 History fexofenadine 180 mg tablet 180 mg PO PRN PRN Allergic Symptoms 11/22/22 08/08/24 History (Negra Allergy) Allergies Allergy/AdvReac Type Severity Reaction Status Date / Time venom-honey bee Allergy Mild Verified 08/08/24 18:55 [bee venom (honey bee)] morphine Allergy ITCHING Verified 08/08/24 18:55 Review of Systems Review of Systems ROS: Yes All systems reviewed with the patient and are negative except as otherwise documented Exam Vital Signs (past 8 hours): - 08/09/24 05:32 08/09/24 08:00 08/09/24 11:04 Temperature 97.6 F 97.3 F L 98.1 F Pulse Rate 60 69 70 Respiratory Rate 16 18 18 Blood Pressure 96/64 114/55 L 111/70 Pulse Oximetry 99 98 100 Oxygen Delivery Method Room Air Oxygen Flow Rate 0 0 Oxygen Delivery Method Room Air Oxygen Flow Rate 0 Narrative Exam Narrative: Gen: NAD, sitting comfortably in bed, appears well HEENT: Sclera are anicteric, head is normocephalic and atraumatic, trachea is midline. CV: RRR, no JVD Resp: clear to auscultation bilaterally, equal chest wall movement bilaterally Abd: soft, nontender, normoactive bowel sounds Ext: no edema, full range of motion Neuro: Cranial nerves II-XII grossly intact, no focal deficits Skin: No erythema or ecchymosis Objective Imaging CT scan - abdomen: My impression: Fecalith in the appendix with some localized free fluid next the appendix and pelvis. Labs 08/09/24 06:20 08/08/24 19:05 Labs: Laboratory Results - last 24 hr 08/08/24 08/09/24 19:05 06:20 WBC 10.4 6.8 RBC 3.82 L 3.34 L Hgb 12.8 11.4 L Hct 37.9 32.8 L MCV 99.1 98.3 MCH 33.5 34.1 H MCHC 33.8 34.7 RDW 12.8 12.7 Plt Count 286 248 Neut % (Auto) 78.3 H 64.5 Lymph % (Auto) 12.5 L 22.9 L [place] % (Auto) 8.1 9.3 Eos % (Auto) 0.7 L 2.3 Baso % (Auto) 0.4 1.0 Neut # (Auto) 8200 H 4400 Lymph # (Auto) 1300 1600 [place] # (Auto) 800 600 Eos # (Auto) 100 200 Baso # (Auto) 0 100 Sodium 133 L Potassium 3.5 Chloride 99 Carbon Dioxide 25 BUN 15 Creatinine 0.86 Estimated GFR > 60 BUN/Creatinine Ratio 17.4 Glucose 105 Calcium 9.2 Total Bilirubin 1.4 H AST 125 H ALT 129 H Alkaline Phosphatase 109 Total Protein 8.1 Albumin 4.3 Globulin 3.8 Albumin/Globulin Ratio 1.1 Lipase 41 Assessment & Plan Assessment and plan (1) Acute appendicitis: Qualifiers: Acute appendicitis type: with localized peritonitis Appendicitis gangrene presence: without gangrene Appendicitis perforation presence: without perforation Appendicitis abscess presence: without abscess Qualified Code(s): K35.30 - Acute appendicitis with localized peritonitis, without perforation or gangrene Status: Acute Assessment & Plan narrative: Risks, benefits alternatives to laparoscopic appendectomy were explained. Risks of bleeding, infection, 10% chance of abscess formation if this is in fact perforated appendicitis all explained. Patient understands and agrees to proceed. Time-Based Coding :: [TOTAL MINUTES] spent with patient and on the chart (including review of chart, obtaining history, exam, reviewing outside data, placing orders, documenting exam and treatment plan, and counseling patient) on [DATE]. PROFEE Conveyor Feeder Document charge(s): Yes
--- NOTE | 2024-08-09 12:00 | CM.DANOTE ---
Initial DCP Assessment Note Pt is a 59 yo female, arrives with abd pain, admitted OBS and scheduled for appy this afternoon with Dr Slater. PCP: Vipul Akhtar Payer: Nina Reviewed chart, pt discussed in multidisciplinary rounds this morning. Patient may discharge home after surgery depending on how she is doing. 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 No barriers identified at this time to patient's safe discharge home w/family to assist; close outpatient f/u recommended. CM team will plan to follow clinical course closely in case any DC needs or concerns arise. DINORA Dominguez Discharge Planning/Care Management CM Discharge Assessment Start: 08/09/24 11:56 Freq: Status: Active Protocol: Document 08/09/24 11:57 DEVYN (Rec: 08/09/24 12:00 DEVYN [id number]) Discharge Planning Assessment Assigned Truckman DINORA Penny DPOA/Assigned Designee Name jorden Hart Contact Information [phone] Advance Directives? No History Provided By Patient,Medical Record Prior Living Arrangements House Household Members none Type of transporation used prior to Drives own vehicle admit Independent with ADL's Yes Is patient alert and oriented? Yes Barriers to Discharge No Discharge Plan Home Transportation Arrangement Family Referrals Initiated None needed
--- NOTE | 2024-08-09 12:10 | SUR.OPER ---
Supine on padded OR bed, head on pillow, right arm secured on padded arm boards at <90 degrees abduction, left arm padded and tucked, legs uncrossed, safety belt at thigh, tape over blanket over lower legs.
[2024-08-09] MEDS: BUPIVACAINE 0.25% W/ EPI 30 ML VIAL INJ (12:15)
[2024-08-09] MEDS: LACTATED RINGERS 1,000 ML 42 ML IV (12:40)
--- NOTE | 2024-08-09 12:40 | PC.NURSE ---
Patient A&OX4, ambulating with steady gait SBA to BR. VSS, afebrile on RA.Taken via bed to PREOP at approximately 1050 a.m.
--- NOTE | 2024-08-09 12:51 | PM.OP.1 ---
Operative Date/Time/Diagnoses Date of procedure: 08/09/24 Time of procedure: 12:51 Pre-op diagnosis: Acute appendicitis Post-op diagnosis: same (Acute appendicitis with gangrene and localized peritonitis) Procedure & Clinicians Procedure: Laparoscopic appendectomy Same procedure as scheduled: Yes Indications: Acute appendicitis with fecalith Surgeon: Tobias Slater Click Yes if Unassisted: Yes Anesthesia Type: General Operative Notes Findings: Gangrenous appendix with adjacent pelvic cyst Closure Type: primary Specimen(s): other (appendix and pelvic cyst) Estimated Blood Loss (mL): 15 Procedure in detail: Consent was obtained. Patient was brought into the operating room suite. Patient was placed in the supine position with the arms out. General anesthesia was induced. Time-out was performed. The abdomen was prepped and draped in the usual fashion. Total of 30 mL of 0.5% Marcaine were infiltrated in all trocar sites. 5 mm optical trocar was placed in the left upper quadrant. Pneumoperitoneum was achieved. The abdomen was inspected. 12 mm trocar placed in the umbilicus. One additional 5 mm trocars was placed in the suprapubic region. The appendix was inspected and found to be adherent to the right adnexa. The appendix was gangrenous and there was a contained cyst of clear fluid at the tip of the appendix below the right ovary. The mesoappendix was dissected free. The mesoappendix was transected with a 45 mm white load. The base of the appendix was transected with a 45 mm white load across the base of the cecum. The gangrenous appendix, mesoappendix and cyst were all brought out through the umbilical trocar and sent off as specimen. There was no gross spillage of pus or stool. The abdomen was copiously irrigated and suctioned free. The umbilical trocar was closed with an 0 Vicryl on a Anthony-Sherlyn suture Passer. Pneumoperitoneum was relieved. Skin was closed with 4-0 Monocryl and Dermabond. Patient tolerated procedure well was transferred to PACU in stable condition for anticipated same-day discharge. Post-operative Condition: stable Disposition: PACU Plan for aftercare: home
[2024-08-09] MEDS: ONDANSETRON 4 MG/2 ML INJ IV (13:06)
--- NOTE | 2024-08-09 13:09 | SUR.PHASEI ---
Patient reported mild nausea, medicated with Zofran. Report given to Mary Lou.
--- NOTE | 2024-08-09 15:54 | PC.NURSE ---
Addendum entered by Yasmin Mckeon R.N. 08/09/24 16:03: correction arrived approximately 1400 back to room 209 Original Note: Patient returned from PACU at approximately 1500 today. She feels slightly whoozy VSS, she is able to ambulate to BR and void. Lap sites PEGGY with dermabond.She reports pain is tolerable with prn oxycodone, tylenol and ibuprofen. She tolerates half a sandwhich and ambulates several laps around the nursing station. She is cleared for discharge by MD Slater. She is awaiting ride home from parents currently after dinner meal, plans to discharge home today.
--- NOTE | 2024-08-09 17:52 | PC.NURSE ---
Day shift: Paperwork signed and all questions answered. Pt has all personal belongings. scripts sent to Pt's pharmacy electronic. The 3 lap sites are with no s/s of infection. Her parents are driving her home and she lives local. Pain has been well controlled per JUL. She ate dinner and had no complaints of nausea or pain. Left unit at approx 1745 via WC. Taken out to car by this song writer.
--- NOTE | 2024-08-13 08:13 | PC.NURSE ---
Late entry. On 08/09 at 0837 5 mg oxycodone po was administered by this curriculum writer for 6/10 pain in abdomen.
== END 2024-08-09 17:40 | disposition home or self-care (01) ==
LOC: ED 21:36 → AC 22:23
PROVIDERS: Admitting Provider Surgery; Emergency Provider Student in an Organized Health Care Education/Training Program; Family Provider Family Medicine; PCP Family Medicine; Referring Provider Student in an Organized Health Care Education/Training Program; Visit Provider Surgery
PROC: 0DTJ4ZZ Resection of Appendix, Percutaneous Endoscopic Approach (ICD-10-PCS; CPT 44970; principal; 2024-08-09 12:15)
DX: K35.31 Acute appendicitis with localized peritonitis and gangrene, without perforation (principal); K38.1 Appendicular concretions; K38.8 Other specified diseases of appendix; R10.9 Unspecified abdominal pain
CPT/HCPCS: 44970; 36415; 74177; 80053; 83690; 85025; 87086; 96361; 96365; 96366; 96372; 96375; 96376; 99222; 99284; G0378; J0330; J1100; J1644; J1885; J2405; J2543; J2704; J3010; J3490; Q9967